=== PATIENT | male | born 1960 | race Two or more races ===

== ENCOUNTER 2017-06-30 07:33 | Emergency (ER) | payer OTHER ==
[2017-06-30 07:39] VITALS: BP 134/74; PULSE 78; TEMP 97.8; BMI 33.9
--- NOTE | 2017-06-30 07:49 | PDOC ---
History of Present Illness - General Chief Complaint: Back Pain Stated Complaint: BACK PAIN Time Seen by Provider: 06/30/17 07:41 History Source: Patient Exam Limitations: No Limitations - History of Present Illness Initial Comments: CHIEF COMPLAINT: 56 y/o afebrile male with PMH HTN, HLD, asthma, chronic pain c /o left lower back pain for 6 months. HISTORY OF PRESENT ILLNESS: The patient states he has had left lower back pain for many months and it sometimes radiates down left thigh. He states he normally takes percocet for the pain but ran out so today the pain was unbearable. He is scheduled to see his primary doctor for a Percocet refill in 2 days. He denies f/c, n/v/d, CP, SOB, abd pain, midline back pain, fall, trauma to back, saddle anesthesia, bowel/bladder incontinence. Vital signs on arrival are notable for O2 sat of 95% on RA. REVIEW OF SYSTEMS: GENERAL/CONSTITUTIONAL: No fever/chills. No weakness. No weight change. HEAD, EYES, EARS, NOSE AND THROAT: No change in vision. No ear pain or discharge. No sore throat. CARDIOVASCULAR: No chest pain or shortness of breath. RESPIRATORY: No cough, wheezing, or hemoptysis. GASTROINTESTINAL: No abd pain, nausea, vomiting, diarrhea. GENITOURINARY: No dysuria, frequency, or change in urination. No bowel or bladder incontinence. MUSCULOSKELETAL: No joint or muscle swelling or pain. No neck pain. +left low back pain. SKIN: No rash or easy bruising. NEUROLOGIC: No headache, vertigo, loss of consciousness, or loss of sensation. PHYSICAL EXAM: GENERAL: The patient is awake, alert, and fully oriented, in no acute distress. He is well appearing and ambulatory. HEAD: Normal with no signs of trauma. ENT: Pupils equal, round and reactive to light, extraocular movements intact, sclera anicteric, conjunctiva clear. Neck supple. LUNGS: Clear to auscultation bilaterally. Normal excursion. No respiratory distress or use of accessory muscles. CV: RRR, S1/S2, no MRG. Cap refill < 2 sec. ABDOMEN: Soft, non-distended, non-tender even to deep palpation, no hepatomegaly or splenomegaly, no masses. BACK: No midline lumbar spine TTP or step offs. Reproducible pain with palpation of left lumbar paravertebral muscles, L4-L5. Full flexion and extension of lumbar spine. No pain with palpation of left hip or left buttocks. EXTREMITIES: Normal range of motion, no edema. NEUROLOGICAL: Normal speech, normal gait. CN II-XII grossly intact. No saddle anesthesia. SKIN: Warm, dry, normal turgor, no rashes or lesions noted. Past History - Past Medical History Allergies/Adverse Reactions: Allergies Allergy/AdvReac Type Severity Reaction Status Date / Time No Known Allergies Allergy Verified 06/30/17 07:38 Home Medications: Ambulatory Orders Albuterol Sulfate Inhaler - [Ventolin HFA Inhaler -] 2 inh PO Q4H 08/30/14 Diclofenac Sodium [Voltaren] 300 gm TP 08/30/14 Gabapentin [Neurontin] 100 mg PO TID 08/30/14 Paroxetine HCl [Paxil -] 10 mg PO DAILY 08/30/14 Salmeterol/Fluticasone [Advair 500Mcg/50Mcg] 1 inh PO BID 08/30/14 Simvastatin [Zocor -] 40 mg PO HS 08/30/14 Valsartan/Hydrochlorothiazide [Diovan Hct 320-12.5 mg Tab] 1 combo PO DAILY Ambien 10 mg PO HS 02/01/15 Aspirin 81 mg PO DAILY 02/01/15 Colace 100 mg PO BID 02/01/15 Hydrochlorothiazide 25 mg PO DAILY 02/01/15 Percocet 1 tab PO PRN PRN 02/01/15 Toviaz 4 mg PO DAILY 02/01/15 Cyclobenzaprine HCl [Flexeril -] 10 mg PO TID #12 tablet 06/30/17 Asthma: Yes Diabetes: Yes (type II) HTN: Yes Hypercholesterolemia: Yes - Surgical History Orthopedic Surgery: Yes (both shoulders ? rotator cuff) - Family Disease History Family Disease History: Diabetes: Mother, Heart Disease: Father - Psycho/Social/Smoking Cessation Hx Anxiety: No Suicidal Ideation: No Smoking History: Never smoked Have you smoked in the past 12 months: No Number of Cigarettes Smoked Daily: 0 If you are a former smoker, when did you quit?: 20 years ago Hx Alcohol Use: Yes (SOCIAL) Drug/Substance Use Hx: No Substance Use Type: None Hx Substance Use Treatment: Yes ([facility]) *Physical Exam - Vital Signs Last Vital Signs Temp Pulse Resp BP Pulse Ox 97.8 F 78 20 134/74 95 06/30/17 07:35 06/30/17 07:35 06/30/17 07:35 06/30/17 07:35 06/30/17 07:35 Medical Decision Making - Medical Decision Making A/P: 56 y/o afebrile male with musculoskeletal low back pain. Plan is as follows: 1. UA 2. PO flexeril 3. IM toradol UA normal. The patient states he feels better. Will discharge the patient home with rx for flexeril. Informed him it may cause drowsiness. Suggested he also take Motrin with it and keep follow up appointment with his doctor on Wednesday for percocet refill. Pt instructed to return to the ER with any worsening or concerning symptoms. The patient verbalizes understanding of all instructions, has no further questions and is awaiting discharge. *DC/Admit/Observation/Transfer Diagnosis at time of Disposition: Low back pain - Discharge Dispostion Disposition: HOME Condition at time of disposition: Improved - Prescriptions Prescriptions: Cyclobenzaprine HCl [Flexeril -] 10 mg PO TID #12 tablet - Referrals Referrals: Arcelia Nieto MD [Primary Care Provider] - - Patient Instructions Printed Discharge Instructions: DI for Low Back Pain Additional Instructions: Discharge Instructions: -A prescription has been sent to your pharmacy; it may cause drowsiness -You can also take Motrin for pain along with the prescription medication -Use heating pad and stretch the affected area of your back -Keep follow up appointment scheduled with your doctor on 07/02/17. -Return to the ER with any worsening or concerning symptoms
[2017-06-30] MEDS ORDERED: CYCLOBENZAPRINE HCL 10 MG TABLET (FP) PO ONE (07:57)
[2017-06-30] MEDS ORDERED: KETOROLAC TROMETHAMINE 60 MG/2 ML VIAL IM ONE (07:57)
[2017-06-30] MEDS ORDERED: KETOROLAC TROMETHAMINE 60 MG/2 ML VIAL ONE (07:59)
[2017-06-30] MEDS ORDERED: CYCLOBENZAPRINE HCL 10 MG TABLET (FP) ONE (07:59)
[2017-06-30 08:41] LABS: URINE APPEARANCE CLEAR; URINE BILIRUBIN NEGATIVE (NEGATIVE); URINE BLOOD NEGATIVE (NEGATIVE); URINE COLOR YELLOW; URINE GLUCOSE (UA) 3+ (NEGATIVE); URINE KETONE NEGATIVE (NEGATIVE); URINE LEUK ESTERASE NEGATIVE (NEGATIVE); URINE NITRITE NEGATIVE (NEGATIVE); URINE PROTEIN NEGATIVE (NEGATIVE); URINE UROBILINOGEN NEGATIVE mg/dL (0.2-1.0)
--- NOTE | 2017-06-30 10:09 | PDOC ---
*Physical Exam - Vital Signs Last Vital Signs Temp Pulse Resp BP Pulse Ox 97.8 F 78 20 134/74 95 06/30/17 07:35 06/30/17 07:35 06/30/17 07:35 06/30/17 07:35 06/30/17 07:35 ED Treatment Course - ADDITIONAL ORDERS Additional order review: Laboratory Results 06/30/17 08:15 Urine Color Yellow Urine Appearance Clear Urine pH 6.0 Urine Protein Negative Urine Glucose (UA) 3+ H Urine Ketones Negative Urine Blood Negative Urine Nitrite Negative Urine Bilirubin Negative Urine Urobilinogen Negative Ur Leukocyte Esterase Negative - Medications Given in the ED: ED Medications Discontinued Medications Generic Name Dose Route Start Last Admin Trade Name Freq PRN Reason Stop Dose Admin Cyclobenzaprine HCl 10 mg 06/30/17 07:57 06/30/17 07:59 Flexeril - PO 06/30/17 07:58 10 mg ONCE ONE Administration Ketorolac Tromethamine 60 mg 06/30/17 07:57 06/30/17 07:59 Toradol Injection - IM 06/30/17 07:58 60 mg ONCE ONE Administration Medical Decision Making - Medical Decision Making 06/30/17 10:04 Pt seen and evaluated with MILLIE Henry. I agree with the assessment and plan. Summary as follows: 56yo M p/w 6 months of L lower back pain radiating down his leg. Denies lower extremity weakness, numbness, urine or stool retention or incontinence, or saddle anesthesia. Exam wnl with 5/5 strength in the lower extremities, normal sensory exam. Likely sciatica vs musculoskeletal back pain. Pt's pain improved immensely with toradol and flexeril. Pt has follow up appointment this week with his PMD for follow up. Will DC with return precautions. *DC/Admit/Observation/Transfer Diagnosis at time of Disposition: Low back pain - Discharge Dispostion Disposition: HOME Condition at time of disposition: Improved - Prescriptions Prescriptions: Cyclobenzaprine HCl [Flexeril -] 10 mg PO TID #12 tablet - Referrals Referrals: Arcelia Nieto MD [Primary Care Provider] - - Patient Instructions Printed Discharge Instructions: DI for Low Back Pain Additional Instructions: Discharge Instructions: -A prescription has been sent to your pharmacy; it may cause drowsiness -You can also take Motrin for pain along with the prescription medication -Use heating pad and stretch the affected area of your back -Keep follow up appointment scheduled with your doctor on 07/02/17. -Return to the ER with any worsening or concerning symptoms - Post Discharge Activity
== END 2017-06-30 10:00 | disposition home or self-care (01) ==
LOC: JER 07:33
PROC: 3E0233Z Introduction of Anti-inflammatory into Muscle, Percutaneous Approach (ICD-10-PCS; principal; 2017-06-30)
DX: M54.5 Low back pain (principal); I10 Essential (primary) hypertension; E78.5 Hyperlipidemia, unspecified; J45.909 Unspecified asthma, uncomplicated; G89.29 Other chronic pain
CPT/HCPCS: 81003; 99281-25

== ENCOUNTER 2017-08-25 12:04 | Emergency (ER) | payer OTHER ==
[2017-08-25 12:09] VITALS: BP 133/70; PULSE 90; TEMP 98.5; BMI 34.7
--- NOTE | 2017-08-25 12:50 | PDOC ---
History of Present Illness - General Chief Complaint: Eye Problem Stated Complaint: Left Eye pressure Time Seen by Provider: 08/25/17 12:13 History Source: Patient Exam Limitations: No Limitations - History of Present Illness Initial Comments: 08/25/17 12:44 CHIEF COMPLAINT: Woke up today with redness, drainage to left eye also with chronic back pain. HISTORY OF PRESENT ILLNESS: Patient is a 56-year-old male history of asthma, diabetes, hypertension and high cholesterol. Patient states he woke up this a.m. with pruritus, drainage to left eye with "pressure". Patient also requesting MRI for chronic back pain. Due to the care of chronic pain management awaiting approval for MRI. Patient denies any neurosensory deficits, no bowel or bladder difficulty, no saddle anesthesia, no footdrop. REVIEW OF SYSTEMS: GENERAL/CONSTITUTIONAL: No fever or chills. No weakness. No weight change. HEAD, EYES, EARS, NOSE AND THROAT: No change in vision. Drainage and pruritus to left eye, patient describes a pressure to left eye. No ear pain or discharge. No sore throat. RESPIRATORY: No cough, wheezing, or hemoptysis. SKIN : No rash or easy bruising. NEUROLOGIC: No headache, vertigo, loss of consciousness, or loss of sensation. HEMATOLOGIC/LYMPHATIC: No lymphadenopathy ALLERGIC/IMMUNOLOGIC: No hives or skin allergy. No latex allergy. PHYSICAL EXAM: GENERAL: The patient is awake, alert, and fully oriented, in no acute distress. HEAD: Normal with no signs of trauma. EYES: Pupils equal, round and reactive to light, extraocular movements intact, sclera anicteric, conjunctiva mildly injected, extending to limbus after fluorescein staining, no corneal abrasion noted. ENT: Ears normal, nares patent, oropharynx clear without exudates. Moist mucous membranes. NECK: Normal range of motion, supple without lymphadenopathy, JVD, or masses. LUNGS: Breath sounds equal, clear to auscultation bilaterally. No wheezes, and no crackles. MUSCULOSKELETAL: No direct spinal point tenderness. No pain over SI joint. NEUROLOGICAL: Cranial nerves II through XII grossly intact. Normal speech, normal gait. SKIN: No erythema no facial edema. Warm, Dry, normal turgor, no rashes or lesions noted. Past History - Past Medical History Allergies/Adverse Reactions: Allergies Allergy/AdvReac Type Severity Reaction Status Date / Time No Known Allergies Allergy Verified 08/25/17 12:09 Home Medications: Ambulatory Orders Albuterol Sulfate Inhaler - [Ventolin HFA Inhaler -] 2 inh PO Q4H 08/30/14 Gabapentin [Neurontin] 100 mg PO TID 08/30/14 Paroxetine HCl [Paxil -] 10 mg PO DAILY 08/30/14 Salmeterol/Fluticasone [Advair 500Mcg/50Mcg -] 1 inh PO BID 08/30/14 Simvastatin [Zocor -] 40 mg PO HS 08/30/14 Valsartan/Hydrochlorothiazide [Diovan Hct 320-12.5 mg Tab] 1 combo PO DAILY Ambien 10 mg PO HS 02/01/15 Aspirin 81 mg PO DAILY 02/01/15 Colace 100 mg PO BID 02/01/15 Hydrochlorothiazide 25 mg PO DAILY 02/01/15 Toviaz 4 mg PO DAILY 02/01/15 Polymyxin B Sulfate/Tmp [Polytrim Opthalmic Solution -] 1 drop OS Q3H #1 drops 08/25/17 Asthma: Yes Diabetes: Yes (type II) HTN: Yes Hypercholesterolemia: Yes - Surgical History Orthopedic Surgery: Yes (both shoulders ? rotator cuff) - Family Disease History Family Disease History: Diabetes: Mother, Heart Disease: Father - Suicide/Smoking/Psychosocial Hx Smoking History: Former smoker Have you smoked in the past 12 months: No Number of Cigarettes Smoked Daily: 0 If you are a former smoker, when did you quit?: 1996 Information on smoking cessation initiated: No Hx Alcohol Use: Yes (Occasinally) Drug/Substance Use Hx: No Substance Use Type: None Hx Substance Use Treatment: Yes ([facility]) *Physical Exam - Vital Signs Last Vital Signs Temp Pulse Resp BP Pulse Ox 98.5 F 90 14 133/70 97 08/25/17 12:06 08/25/17 12:06 08/25/17 12:06 08/25/17 12:06 08/25/17 12:06 Medical Decision Making - Medical Decision Making 08/25/17 12:54 A/P: Patient here for evaluation of left eye pressure, pruritus and drainage, also chronic lower back pain. Patient reports that he has an appointment with chronic pain management today he is awaiting his MRI however was requesting one in the emergency department because he did not one a week for the approval. Explained to patient that there is no acute injury at this time, there is no neurological or sensory deficit. I have obtained an appointment with ophthalmology for patient to be seen at 2 PM today. After fluorescein staining there is no corneal abrasion noted, patient states that he had clear drainage from eyes with "pressure" it is reasonable at this time for patient to be evaluated by ophthalmology to evaluate pressures in the eye. Patient will also follow-up with chronic pain management today to see if the MRI is approved. POlytrim opthalmic solution. I discussed the physical exam findings, ancillary test results and final diagnoses with the patient. I answered all of the patient's questions. The patient was satisfied with the care received and felt comfortable with the discharge plan and treatment plan. The patient will follow-up today and will return to the Emergency Department with any new, persistent or worsening symptoms. *DC/Admit/Observation/Transfer Diagnosis at time of Disposition: Eye pressure Chronic back pain Qualifiers: Back pain location: low back pain Back pain laterality: left Sciatica presence : without sciatica Qualified Code(s): M54.5 - Low back pain; M54.5 - Low back pain; G89.29 - Other chronic pain; G89.29 - Other chronic pain - Discharge Dispostion Disposition: HOME Condition at time of disposition: Good Admit: No - Prescriptions Prescriptions: Polymyxin B Sulfate/Tmp [Polytrim Opthalmic Solution -] 1 drop OS Q3H #1 drops - Referrals Referrals: Rafal Burton [Non Staff, Medical] - (TODAY AT 2 PM ) - Patient Instructions Additional Instructions: Please follow up today at 2 PM with the staffing coordinator Dr. Burton. Please follow-up with her chronic back pain doctor for MRI, take medications as prescribed
== END 2017-08-25 13:05 | disposition home or self-care (01) ==
LOC: JERFT 12:04
DX: H57.8 Other specified disorders of eye and adnexa (principal); M54.5 Low back pain; G89.29 Other chronic pain
CPT/HCPCS: 99281-25

== ENCOUNTER 2017-10-04 15:27 | Emergency (ER) | payer OTHER ==
--- NOTE | 2017-10-04 15:50 | PDOC ---
History of Present Illness <Clover Adames - Last Filed: 10/04/17 18:32> - History of Present Illness Initial Comments: 57 year old male with PMH of HTN, HLD, Diabetes, and repeat history of right shoulder dislocations (s/p surgery 10 years prior) presenting with right shoulder deformity after fall. He tripped after drinking 7 beers and walking around a wet floor with socks in his house then fell on his outstretched hand after which he heard a pop which was typical for his shoulder dislocations. He also admits to pain at that site. Denies any bleeding, skin breakage, head trauma, LOC, or any other symptoms. All of his previous reductions have been udner anesthesia without complication. 10/04/17 18:40 <Binu Rogel - Last Filed: 10/04/17 19:11> - General Chief Complaint: Injury Stated Complaint: INJURY TO ARM Time Seen by Provider: 10/04/17 15:49 Past History <Clover Adames - Last Filed: 10/04/17 18:32> - Past Medical History Asthma: Yes Diabetes: Yes (type II) HTN: Yes Hypercholesterolemia: Yes - Surgical History Orthopedic Surgery: Yes (both shoulders ? rotator cuff) - Family Disease History Family Disease History: Diabetes: Mother, Heart Disease: Father - Suicide/Smoking/Psychosocial Hx Smoking History: Former smoker Have you smoked in the past 12 months: No Number of Cigarettes Smoked Daily: 0 If you are a former smoker, when did you quit?: 1996 Hx Alcohol Use: Yes (Occasinally) Drug/Substance Use Hx: No Substance Use Type: None Hx Substance Use Treatment: Yes ([facility]) <Binu Rogel - Last Filed: 10/04/17 19:11> - Past Medical History Allergies/Adverse Reactions: Allergies Allergy/AdvReac Type Severity Reaction Status Date / Time No Known Allergies Allergy Verified 10/04/17 17:04 Home Medications: Ambulatory Orders Albuterol Sulfate Inhaler - [Ventolin HFA Inhaler -] 2 inh PO Q4H 08/30/14 Gabapentin [Neurontin] 100 mg PO TID 08/30/14 Paroxetine HCl [Paxil -] 10 mg PO DAILY 08/30/14 Salmeterol/Fluticasone [Advair 500Mcg/50Mcg -] 1 inh PO BID 08/30/14 Simvastatin [Zocor -] 40 mg PO HS 08/30/14 Valsartan/Hydrochlorothiazide [Diovan Hct 320-12.5 mg Tab] 1 combo PO DAILY Ambien 10 mg PO HS 02/01/15 Aspirin 81 mg PO DAILY 02/01/15 Colace 100 mg PO BID 02/01/15 Hydrochlorothiazide 25 mg PO DAILY 02/01/15 Toviaz 4 mg PO DAILY 02/01/15 Polymyxin B Sulfate/Tmp [Polytrim Opthalmic Solution -] 1 drop OS Q3H #1 drops 08/25/17 Review of Systems - Review of Systems Constitutional: No: Chills, Diaphoresis HEENTM: No: Blurred Vision Respiratory: No: Orthopnea, Shortness of Breath Cardiac (ROS): No: Chest Pain ABD/GI: No: Constipated, Diarrhea, Nausea, Vomiting : No: Dysuria, Discharge Integumentary: No: Bruising, Change in Color Neurological: No: Headache, Numbness, Paresthesia <Binu Rogel - Last Filed: 10/04/17 19:11> *Physical Exam - Vital Signs Last Vital Signs Temp Pulse Resp BP Pulse Ox 98.1 F 69 18 103/52 100 10/04/17 15:27 10/04/17 15:27 10/04/17 15:27 10/04/17 15:27 10/04/17 15:27 <Clover Adames - Last Filed: 10/04/17 18:32> - Physical Exam General Appearance: Yes: Nourished, Appropriately Dressed, Apparent Distress, Mild Distress HEENT: positive: EOMI, Normal ENT Inspection, Normal Voice Neck: positive: Trachea midline, Normal Thyroid, Supple. negative: Tender, Rigid Respiratory/Chest: positive: Lungs Clear, Normal Breath Sounds. negative: Chest Tender, Respiratory Distress Cardiovascular: positive: Regular Rhythm, Regular Rate Gastrointestinal/Abdominal: positive: Normal Bowel Sounds, Flat, Soft. negative : Tender Musculoskeletal: positive: Other (Right shoulder abducted to 90 degrees and externaly rotated. Unable to range without pain. Obvious deformity over the glenohumeral joint.). negative: Normal Inspection <Binu Rogel - Last Filed: 10/04/17 19:11> Procedures - Joint Reduction Right Joint Reduction Site: right: Shoulder, Anterior Dislocation Pre-Procedure NV Exam: normal Conscious Sedation: Yes Reduction Attempts: 1 Anesthetic: 2% Lidocaine (8 mL injected intrarticular) Anesthesia: Fentanyl Amt. of medication administered: 100mcg Procedure: Traction Counter Traction Post-Procedure NV Exam: normal Complications: No Post Joint Reduction Film: joint reduced Immobilized: Yes Progress: Propofol 20 mcg used with good reduction. Patient was slightly apneic for a few seconds but was bagged with ample jaw thrust. 10/04/17 18:58 Bedside consent, time out, and pre-procedure verification done. 10/04/17 18:59 <Binu Rogel - Last Filed: 10/04/17 19:11> ED Treatment Course - Medications Given in the ED: ED Medications Discontinued Medications Generic Name Dose Route Start Last Admin Trade Name Freq PRN Reason Stop Dose Admin Fentanyl 50 mcg 10/04/17 15:55 10/04/17 16:28 Sublimaze Injection - IVPUSH 10/04/17 15:56 50 mcg ONCE ONE Administration Fentanyl 50 mcg 10/04/17 16:52 10/04/17 17:04 Sublimaze Injection - IVPUSH 10/04/17 16:53 50 mcg ONCE ONE Administration Lidocaine/Epinephrine 20 ml 10/04/17 16:19 10/04/17 16:28 Xylocaine 2%-Epi 1:200,000 - NR 10/04/17 16:20 20 ml ONCE ONE Administration <Clover Adames - Last Filed: 10/04/17 18:32> Medical Decision Making - Medical Decision Making 57 year old male with right shoulder anterior dislocation on xray. Shoulder was reduced per procedure note after 100 total of fentanyl, intrarticular lidocaine, and 20 of propofol. Patient tolerated the procedure failry well and post reduction film should a well aligned glenohumeral joint. Shoulder was immobilized and ortho referral was given with instructions to keep his arm in the immobilizer until seeing orthopedics. 10/04/17 19:00 <Binu Rogel - Last Filed: 10/04/17 19:11> *DC/Admit/Observation/Transfer <Clover Adames - Last Filed: 10/04/17 18:32> - Discharge Dispostion Admit: No <Binu Rogel - Last Filed: 10/04/17 19:11> Diagnosis at time of Disposition: Shoulder dislocation, recurrent Qualifiers: Laterality: right Qualified Code(s): M24.411 - Recurrent dislocation, right shoulder - Discharge Dispostion Disposition: HOME - Referrals Referrals: Trell Davis MD [Staff Physician] - - Patient Instructions Printed Discharge Instructions: How to Use a Shoulder Immobilizer, DI for Shoulder Dislocation Additional Instructions: Your shoulder was put back in place. Please wear your shoulder immobilizer until you see the orthopedic doctor who we referred you to. Please return to the ED if your shoulder comes back out. Please use Tylenol and ibuprofen for pain.
[2017-10-04] MEDS ORDERED: LIDOCAINE HCL/EPINEPHRINE/PF 10 ML VIAL NR ONE (16:19)
[2017-10-04] MEDS ORDERED: LIDOCAINE 1%/EPI 1:100000 (20 ML MULTI DOSE VIAL) ONE (16:20)
[2017-10-04 17:05] VITALS: TEMP 98.1; BMI 34.7
[2017-10-04] MEDS ORDERED: PROPOFOL 1,000,000 MCG/100 ML VIAL IVPB SCH (18:00)
[2017-10-04] MEDS ORDERED: PROPOFOL 1,000,000 MCG/100 ML VIAL ONE (18:06)
--- NOTE | 2017-10-04 18:33 | PDOC ---
Attending Attestation - Resident Resident Name: Binu Rogel - ED Attending Attestation I have performed the following: I have examined & evaluated the patient, The case was reviewed & discussed with the resident, I agree w/resident's findings & plan, Exceptions are as noted - HPI HPI: 10/04/17 18:32 57-year-old male with a history of shoulder dislocations fell and dislocated his shoulder today. There is a 7 time. He's done this. He said 2 years ago. He did have orthopedic surgery on the same shoulder. Patient denies any other traumas. Denies any head trauma, loss of consciousness. - Physicial Exam PE: 10/04/17 18:47 57 yo male with rt shoulder anterior dislocation head nontraumatic neck supple lungs cta b/l cvs [id number] abd soft,nontender ext rt shouder ,good ulnar and radial pulses but anterior dislocation,sensation intact neuro axox3,ambulatory - Medical Decision Making 10/04/17 18:50 CONSENT obtained from pt PRE OP VITAL SIGNS done propofol given 20 mg IV fentanyl 100mg IV given shoulder successfully manually reduced post of radiograph ordered plan immobilizer/ortho followup
[2017-10-04] MEDS ORDERED: PROPOFOL 200 MG/20 ML VIAL IVPUSH ONE (18:39)
[2017-10-04 20:23] VITALS: BP 128/89; PULSE 84
== END 2017-10-04 19:36 | disposition home or self-care (01) ==
LOC: JER 15:27
PROC: 3E033NZ Introduction of Analgesics, Hypnotics, Sedatives into Peripheral Vein, Percutaneous Approach (ICD-10-PCS; principal; 2017-10-04)
PROC: 0RSJXZZ Reposition Right Shoulder Joint, External Approach (ICD-10-PCS; 2017-10-04)
DX: M24.411 Recurrent dislocation, right shoulder (principal); I10 Essential (primary) hypertension; E78.00 Pure hypercholesterolemia, unspecified; E11.9 Type 2 diabetes mellitus without complications; Z79.84 Long term (current) use of oral hypoglycemic drugs
CPT/HCPCS: 23650; 73030-TC-RT; 96374; 96376; 99283-25

== ENCOUNTER 2017-12-08 08:40 | Day surgery (SDC) | payer OTHER ==
[2017-12-07 11:23] VITALS: BMI 33.9
[2017-12-08] MEDS ORDERED: ROPIVACAINE HCL 0.5% 30ML VIAL ONE (09:35)
[2017-12-08] MEDS ORDERED: MIDAZOLAM HCL 2 MG/2 ML SINGLE DOSE VIAL ONE ×2 (09:36)
[2017-12-08] MEDS ORDERED: PATIENT'S OWN MEDICATION (NON-FORMULARY) (Salmeterol/Fluticasone [Advair 500mcg/50mcg -] 1 PO PRN (11:06)
--- NOTE | 2017-12-08 11:08 | HP ---
Satellite [facility] - Chief Complaint Chief Complaint: right shoulder pain - Past Medical History Allergies/Adverse Reactions: Allergies Allergy/AdvReac Type Severity Reaction Status Date / Time No Known Allergies Allergy Verified 12/08/17 09:30 - Current Medications Current Medications: Home Medications Medication Instructions Recorded Albuterol Sulfate Inhaler - 2 inh PO Q4H 08/30/14 [Ventolin HFA Inhaler -] Gabapentin [Neurontin] 100 mg PO TID 08/30/14 Paroxetine HCl [Paxil -] 10 mg PO DAILY 08/30/14 Salmeterol/Fluticasone [Advair 1 inh PO PRN PRN 08/30/14 500Mcg/50Mcg -] Simvastatin [Zocor -] 40 mg PO HS 08/30/14 Valsartan/Hydrochlorothiazide 1 combo PO DAILY 08/30/14 [Diovan Hct 320-12.5 mg Tab] Tamsulosin HCl [Flomax] 0.4 mg PO HS 12/07/17 Ascorbic Acid [Vitamin C] 500 mg PO DAILY 12/08/17 Cholecalciferol (Vitamin D3) 5,000 unit PO DAILY 12/08/17 [Vitamin D3] Cinnamon Bark [Cinnamon] 500 mg PO BID 12/08/17 Fluticasone Prop 0.05% Nasal 1 - 2 spray NS BID 12/08/17 [Flonase -] Vitamin E Mixed [Vitamin E] 400 unit PO DAILY 12/08/17 Satellite Physical Exam - Physical Examination Vital Signs: Vital Signs Period Temp Pulse Resp BP Sys/Motley Pulse Ox Last 24 Hr 97.9 F-97.9 F 77-77 20-20 123-123/60-60 96 General Appearance: Well Nourished, Well Developed, Alert & Oriented x3 ENT: Clear Lung: Normal air movement Heart: Regular rate & rhythm Extremities: Other (right shoulder- + ttp, decr rom, nvi MRI chronic RC arthropathy with GH djd) Neurological: Intact, Alert, Oriented Satellite Impression/Plan - Impression/Plan Impression: right shoulder djd, chronic RC arthropathy Operative Procedure: right reverse TSA Date to be Performed: 12/08/17
[2017-12-08] MEDS ORDERED: ONDANSETRON 4 MG/2 ML VIAL IVPUSH PRN (11:27)
[2017-12-08] MEDS ORDERED: LACTATED RINGERS SOLUTION 1,000 ML IV SCH (11:30)
[2017-12-08] MEDS ORDERED: PROPOFOL 20 ML ONE ×3 (11:58)
--- NOTE | 2017-12-08 15:46 | OP ---
Operative Note - Note: Operative Date: 12/08/17 ([facility]) Pre-Operative Diagnosis: right shoulder djd, chronic RC arthropathy Operation: right reverse TSA Post-Operative Diagnosis: Same as Pre-op Surgeon: Trell Davis Silicator: Ronald Paiz Anesthesiologist/FIELD OBSERVER: Aron Michelle Anesthesia: General, Local Specimens Removed: humeral head Estimated Blood Loss (mls): 700 Operative Report Dictated: Yes
[2017-12-08 16:46] LABS: HEMATOCRIT 38.5 % (35.4-49); HEMOGLOBIN 12.9 GM/dL (11.7-16.9); MCH 29.3 pg (25.7-33.7); MCHC 33.5 g/dl (32.0-35.9); MEAN CELL VOLUME 87.4 fl (80-96); MEAN PLT VOLUME 9.1 fl (7.5-11.1); PLATELET COUNT 241 K/MM3 (134-434); RDW 14.1 % (11.9-15.9); WHITE BLOOD COUNT 15.8 K/mm3 (4.0-10.0)
[2017-12-08] MEDS: ALBUTEROL SO4 18 GM HFA INHALER IH SCH ×2 (18:11→22:17)
[2017-12-08] MEDS: GABAPENTIN 100 MG CAPSULE (FP) PO SCH ×2 (18:12→22:19)
[2017-12-08] MEDS ORDERED: TAMSULOSIN HCL 0.4 MG CAP.ER.24H (FP) PO SCH (22:00)
[2017-12-08] MEDS ORDERED: ATORVASTATIN CA 20 MG TABLET (FP) PO SCH (22:00)
[2017-12-09] MEDS: ALBUTEROL SO4 18 GM HFA INHALER IH SCH ×5 (03:30→15:58)
[2017-12-09] MEDS: GABAPENTIN 100 MG CAPSULE (FP) PO SCH ×2 (05:48→14:40)
[2017-12-09] MEDS ORDERED: morphine CARPU-JECT 8 MG/1 ML DISP.SYRIN IVPB PRN (06:20)
--- NOTE | 2017-12-09 08:34 | PN ---
Progress Note (short form) - Note Progress Note: Pt seen and examined. He is on POD #1 s/p right total shoulder replacement. He c /o pain. AVSS Right arm looks good. Dressing removed, incision cleaned, dressing reapplied. No signs of infection or inflammation. RUE NVI. Good ROM at the right elbow, forearm, wrist, fingers. No swelling. He c/o "numbness" in the left foot, the rest of the LLE is nl, however he does has intact sensation to light touch and deep pressure. No pain in LLE. Imp Overall doing fine on POD #1. Rec IV Tylenol, and Anesthesia consultation for pain management. He will start ROM exercises for the RUE now. DC still likely today.
--- NOTE | 2017-12-09 08:46 | PN ---
Progress Note (short form) - Note Progress Note: Post op day#1.S/P Right reverse total shoulder replacement under GA uneventful.Patient had a R intersclene block for post op pain management which worked fine till 5am today.Patient stable and c/o pain score of 10/10 now so will order Urban Devine and Isaías IVPB.Patient scheduled to be DC today after feeling comfortable.No any anesthesia related problem.Patient DC from the anesthesia care.
[2017-12-09 09:00] LABS: HEMATOCRIT 31.6 % (35.4-49); HEMOGLOBIN 10.5 GM/dL (11.7-16.9); MCHC 33.2 g/dl (32.0-35.9); MEAN CELL VOLUME 87.4 fl (80-96); MEAN PLT VOLUME 9.2 fl (7.5-11.1); PLATELET COUNT 189 K/MM3 (134-434); RBC 3.62 M/mm3 (4.00-5.60); WHITE BLOOD COUNT 11.4 K/mm3 (4.0-10.0)
[2017-12-09] MEDS ORDERED: HYDROmorphone HCL CARPU-JECT 1 MG/1 ML DISP.SYRIN IVPB PRN (09:03)
[2017-12-09] MEDS ORDERED: ACETAMINOPHEN 1000 MG/100 ML VIAL (NON FORMULARY) IVPB PRN (09:04)
[2017-12-09] MEDS ORDERED: IBUPROFEN 800 MG/8 ML IJ IVPB PRN (09:15)
[2017-12-09] MEDS ORDERED: PT OWN MED DRAWER 7, Y5N ONE (09:43)
[2017-12-09] MEDS ORDERED: PARoxetine HCL 10 MG TABLET (FP) PO SCH (10:00)
--- NOTE | 2017-12-09 12:19 | SPEC ---
DATE OF OPERATION: 12/08/2017 PREOPERATIVE DIAGNOSES: Right shoulder arthritis, rotator cuff tear, and rotator cuff arthropathy. POSTOPERATIVE DIAGNOSES: Right shoulder arthritis, rotator cuff tear, and rotator cuff arthropathy. PROCEDURE: Right reverse total shoulder replacement. SURGEON: Katrina Valderrama MD MASON TENDER: MILLIE Guzman ANESTHESIOLOGIST: Aron Micehlle CRNA ANESTHESIA: Right interscalene block with LMA anesthesia. DRAINS: None. COMPLICATIONS: None. SPECIMEN: Humeral head. BLOOD LOSS: 700 mL FLUID GIVEN: 3 L Plasmalyte. INDICATION FOR PROCEDURE: This patient is a 57-year-old male with a preoperative diagnosis of a previous rotator cuff tear and rotator cuff repair surgery, but now with rotator cuff arthropathy and significant glenohumeral osteoarthritis. After understanding the potential risks, complications, alternatives, and benefits of surgery versus nonsurgical treatment, the patient elected to undergo this procedure. He understands that his range of motion and function will not be perfect. He will have difficulty lifting above the plane of the shoulder. He likely will need physical therapy. There is a lifelong risk of infection, prosthesis loosening, breakage, need for additional surgery. He understands these and other potential risks and complications which were discussed and has elected to go forward with surgery. DESCRIPTION OF PROCEDURE: A right interscalene block was performed. LMA anesthesia was induced. He was placed into the beach-chair position with ample padding throughout. The right upper extremity was prepped and draped in a sterile fashion. A deltopectoral approach incision was marked out using the coracoid and mid aspect of the proximal humerus as landmarks. The incision was made with the No. 15 scalpel blade. Subcutaneous hemostasis was achieved with a Bovie cautery. Dissection was done through the superficial fascia. Blunt dissection was done with my finger in the deltopectoral interval. The cephalic vein was retracted medially. The Gelpi self-retaining retractors were placed into the wound. I found the conjoined tendon off the coracoid and used the Bovie to incise lateral to it. I was then able to cut down to bone and preserve the medial and lateral capsular flaps. The rotator cuff subscapularis was very deficient. I then peeled the soft tissues, including the anterior aspect of the deltoid insertion off the humerus. The biceps tendon was seen to be frayed, degenerated out of its groove, and therefore I did a biceps tenolysis. Appropriate Fukuda and pickle-fork retractors were placed into the wound, exposing the proximal humerus. I was able to easily dislocate it anteriorly. It was extremely arthritic. Next, using the external guide and a broach, I used the oscillating saw to do a cut at the articular margin. Osteophytes were removed with the rongeur. Some soft tissue was removed with the Bovie. I was able to expose the proximal humerus quite well. Next, using the standard technique, using the Money Mover Reverse Total Shoulder Replacement System, we used first the starting awl and then the sequential hand broaches until we had cortical chatter. Then we used the humeral stem-shape broaches and mallet. We eventually seated a 15-size stem that had excellent cortical contact and was very stable throughout. We did not need to use the calcar reamer as the humeral cut was at the right angle. Next, our attention was turned to the glenoid. The Bovie was used to remove soft tissue, including some capsular attachments and the labrum. Retractors were placed into the wound to retract the humerus and expose the glenoid. With excellent direct visualization, we then put on the glenoid glenosphere, lining it up appropriately and put in the 3.2-mm guidewire. We went through 2 cortices. We then used the guidewire to do the glenoid reamer. We were able to ream the glenoid until we got bleeding subchondral bone. More bone was taken inferiorly than superiorly, but it was concentric. The guidewire was then removed, and we put on the actual 28-mm glenoid baseplate, held it in place with a 28-mm central screw. Then using the typical standard technique, we put in superior, inferior, and anterior and posterior screws, which were 36, 24, and 16 mm in length, respectively. We had excellent compression of the glenoid baseplate against the glenoid and overall concentric fit. Next, we put on a 36-mm glenosphere. This was the actual implant, impacted in place, and it was quite stable. Next, our attention was turned to the humerus. We cleaned up the humeral shaft, put in an actual Press-Fit humeral stem size number 12 and used the mallet to put it down to the appropriate level. We then trialed the size of the humeral glenosphere, and it ended up being a 36-mm implant. It was extremely stable. In fact, it was very difficult to dislocate. On the humeral side, there was a 4-mm baseplate, a 4-mm polyethylene, and a 2-mm offset. Next, this trial was removed, and the actual 36-mm humeral glenosphere was placed on, it was reduced, and was extremely stable throughout. The area was copiously irrigated and washed out. The capsule was closed anteriorly with several No. 1 Ti-Cron sutures, the deep fascial layer closed with No. 1 Ti-Cron, and the superficial deltoid fascia closed with 0 Vicryl suture. A 2-0 Vicryl was used to close the deep dermal layer, and final skin reapproximation was done with a running subcuticular 3-0 V-Loc suture. The area was then washed and dried, covered with a 10-inch Aquacel dressing. The patient was extubated. There was total blood loss of 700 mL. There were no complications during the case. The shoulder immobilizer was placed in the operating room, and she was brought to the regular recovery room in stable condition. Total operative time was 1 hour and 45 minutes. There were no complications during the case. The patient tolerated the procedure quite well. There was 700 mL of blood loss. KATRINA VALDERRAMA M.D. [id number]
[2017-12-09 14:42] VITALS: BP 133/60; PULSE 93; TEMP 98.3
--- NOTE | 2017-12-15 14:42 | PATH ---
Surgical Pathology Report Patient Name: BABS GASTELUM Med. Rec. #: [id number] /Age/Gender: 1960 (Age: 57) / M Account: [id number] Location: AMBULATORY SURG Taken: 12/08/2017 Received: 12/09/2017 Reported: 12/15/2017 Physicians: Trell Davis M.D. Specimen(s) Received RIGHT HUMERAL HEAD Clinical History Fracture/osteoarthritis right shoulder Final Diagnosis HUMERAL HEAD, RIGHT, REVERSE TOTAL SHOULDER REPLACEMENT: BONE WITH DEGENERATIVE CHANGES AND INTERSTITIAL HEMORRHAGE CONSISTENT WITH FRACTURE. Electronically Signed Sonia Garcia M.D. Gross Description Received in formalin labeled "right humeral head," is a 5.3 x 4.6 x 3.2 cm portion of humeral head. The margin of resection is red-brown, jagged and hemorrhagic. The articular surface is acosta-yellow and focally granular. There are no areas of eburnation identified. The underlying trabecular bone is yellow, hard and focally hemorrhagic. Mortgage Loan Coordinator sections are submitted in one cassette, following decalcification. /12/09/2017 [facility]2017
== END 2017-12-09 16:28 | disposition home or self-care (01) ==
LOC: JASU-SURG 08:40 → JASUSAT 08:40 → J6S 17:45 → JASUSAT 12-09 16:27
PROVIDERS: ATTEND Orthopaedic Surgery
PROC: 0RRJ00Z Replacement of Right Shoulder Joint with Reverse Ball and Socket Synthetic Substitute, Open Approach (ICD-10-PCS; principal; 2017-12-08 10:45)
DX: M13.811 Other specified arthritis, right shoulder (principal)
CPT/HCPCS: 36415; 73030-TC-RT-FY; 85027; 88307-TC; 88311-TC; 94760

== ENCOUNTER 2018-04-02 10:11 | Emergency (ER) | payer OTHER ==
[2018-04-02 10:17] VITALS: TEMP 98; BMI 34.7
[2018-04-02] MEDS ORDERED: LORATADINE 10 MG TABLET PO ONE (11:26)
[2018-04-02] MEDS: ALBUTEROL SO4 2.5/IPRATROPIUM 0.5 INH SOL 3 ML VIAL.NEB. NEB SCH ×2 (11:30→11:45)
[2018-04-02] MEDS ORDERED: ALBUTEROL SO4 2.5/IPRATROPIUM 0.5 INH SOL 3 ML VIAL.NEB. NEB ONE (11:31)
[2018-04-02] MEDS ORDERED: LORATADINE 10 MG TABLET ONE (11:31)
--- NOTE | 2018-04-02 12:08 | PDOC ---
History of Present Illness - General History Source: Patient Exam Limitations: No Limitations - History of Present Illness Initial Comments: CHIEF COMPLAINT: 57 y/o afebrile male with PMH asthma, BPH, HTN, HLD c/o inability to breathe for 4 months. HISTORY OF PRESENT ILLNESS: The patient describes that he cannot breathe through his nose for the past 4 months. He saw his PCP who suggested flonase but that has not been helping. He is taking his asthma medications as prescribed. he denies fever, cough, CP, SOB, abd pain, n/v/d. Vital signs on arrival are notable for pulse of 101. REVIEW OF SYSTEMS: GENERAL/CONSTITUTIONAL: No fever/chills. No weakness. No weight change. HEAD, EYES, EARS, NOSE AND THROAT: +nasal congestion. No change in vision. No ear pain or discharge. No sore throat. CARDIOVASCULAR: No chest pain or shortness of breath. RESPIRATORY: No cough, wheezing, or hemoptysis. GASTROINTESTINAL: No nausea, vomiting, diarrhea. GENITOURINARY: No dysuria, frequency, or change in urination. MUSCULOSKELETAL: No joint or muscle swelling or pain. No neck or back pain. SKIN: No rash or easy bruising. NEUROLOGIC: No headache, vertigo, loss of consciousness, or loss of sensation. PHYSICAL EXAM: GENERAL: The patient is awake, alert, and fully oriented, in no acute distress. he is well appearing, ambulatory, able to speak in full sentences without difficulty. HEAD: Normal with no signs of trauma. ENT: Pupils equal, round and reactive to light, extraocular movements intact, sclera anicteric, conjunctiva clear. Nasal congestion LUNGS: Expiratory wheezing in upper posterior delgado. Normal excursion. No respiratory distress or use of accessory muscles. CV: RRR, S1/S2, no MRG. Cap refill < 2 sec. ABDOMEN: Soft, non-distended, non-tender even to deep palpation, no hepatomegaly or splenomegaly, no masses. EXTREMITIES: Normal range of motion, no edema. NEUROLOGICAL: Normal speech, normal gait. CN II-XII grossly intact. SKIN: Warm, dry, normal turgor, no rashes or lesions noted. <Elvi Henry - Last Filed: 04/02/18 12:37> <Jack Ceballos - Last Filed: 04/04/18 07:34> - General Chief Complaint: Shortness of Breath Stated Complaint: BREATHING PROBLEMS Time Seen by Provider: 04/02/18 11:06 Past History - Past Medical History Anemia: No Asthma: Yes Cancer: No Cardiac Disorders: No CVA: No COPD: No CHF: No Dementia: No Diabetes: Yes (type II) GI Disorders: No Disorders: No HTN: Yes Hypercholesterolemia: Yes Liver Disease: No Seizures: No Thyroid Disease: No - Surgical History Abdominal Surgery: No Appendectomy: No Cardiac Surgery: No Cholecystectomy: No Lung Surgery: No Neurologic Surgery: No Orthopedic Surgery: Yes (both shoulders ? rotator cuff) - Family Disease History Family Disease History: Diabetes: Mother, Heart Disease: Father - Suicide/Smoking/Psychosocial Hx Smoking History: Former smoker Have you smoked in the past 12 months: No Number of Cigarettes Smoked Daily: 0 If you are a former smoker, when did you quit?: 1996 Information on smoking cessation initiated: No Hx Alcohol Use: Yes (SOCIALLY) Drug/Substance Use Hx: No Substance Use Type: None Hx Substance Use Treatment: Yes ([facility]) <Elvi Henry - Last Filed: 04/02/18 12:37> <Jack Ceballos - Last Filed: 04/04/18 07:34> - Past Medical History Allergies/Adverse Reactions: Allergies Allergy/AdvReac Type Severity Reaction Status Date / Time No Known Allergies Allergy Verified 04/02/18 10:17 Home Medications: Ambulatory Orders Albuterol Sulfate Inhaler - [Ventolin HFA Inhaler -] 2 inh PO Q4H 08/30/14 Gabapentin [Neurontin] 100 mg PO TID 08/30/14 Paroxetine HCl [Paxil -] 10 mg PO DAILY 08/30/14 Salmeterol/Fluticasone [Advair 500Mcg/50Mcg -] 1 inh PO PRN PRN 08/30/14 Simvastatin [Zocor -] 40 mg PO HS 08/30/14 Valsartan/Hydrochlorothiazide [Diovan Hct 320-12.5 mg Tab] 1 combo PO DAILY Tamsulosin HCl [Flomax] 0.4 mg PO HS 12/07/17 Ascorbic Acid [Vitamin C] 500 mg PO DAILY 12/08/17 Cholecalciferol (Vitamin D3) [Vitamin D3] 5,000 unit PO DAILY 12/08/17 Cinnamon Bark [Cinnamon] 500 mg PO BID 12/08/17 Fluticasone Prop 0.05% Nasal [Flonase -] 1 - 2 spray NS BID 12/08/17 Vitamin E Mixed [Vitamin E] 400 unit PO DAILY 12/08/17 Albuterol 0.083% Nebulizer Deb [Ventolin 0.083% Nebulizer Soln -] 1 neb NEB Q6H PRN #50 vial 04/02/18 Loratadine [Claritin -] 10 mg PO DAILY #30 tablet 04/02/18 Nebulizer [Aeroeclipse II] 1 each PRN #1 each 04/02/18 *Physical Exam - Vital Signs Last Vital Signs Temp Pulse Resp BP Pulse Ox 98 F 101 H 18 140/75 99 04/02/18 10:13 04/02/18 10:13 04/02/18 10:13 04/02/18 10:13 04/02/18 10:13 <Elvi Henry - Last Filed: 04/02/18 12:37> - Vital Signs Last Vital Signs Temp Pulse Resp BP Pulse Ox 98 F 80 16 139/85 100 04/02/18 10:13 04/02/18 12:45 04/02/18 12:45 04/02/18 12:45 04/02/18 12:45 <Jack Ceballos - Last Filed: 04/04/18 07:34> Moderate Sedation - Procedure Monitoring Vital Signs: Vital Signs Temp Pulse Resp BP Pulse Ox 98 F 80 16 139/85 100 04/02/18 10:13 04/02/18 12:45 04/02/18 12:45 04/02/18 12:45 04/02/18 12:45 <Jack Ceballos - Last Filed: 04/04/18 07:34> ED Treatment Course - Medications Given in the ED: ED Medications Discontinued Medications Generic Name Dose Route Start Last Admin Trade Name Freq PRN Reason Stop Dose Admin Albuterol/Ipratropium 1 amp 04/02/18 11:30 04/02/18 11:45 Duoneb - NEB 04/02/18 11:46 1 amp Q15M LAINEY Administration Loratadine 10 mg 04/02/18 11:26 04/02/18 11:37 Claritin - PO 04/02/18 11:27 10 mg ONCE ONE Administration <LinJack rodriguez - Last Filed: 04/04/18 07:34> Medical Decision Making - Medical Decision Making A/P: 57 y/o afebrile male with nasal congestion and wheezing. Plan is as follows: 1. PO claritin 2. Duoneb x 2 3. Reassess The patient states he feels much better. Lungs are now CTAB. Will discharge to home with rx for nebulizer with albuterol and claritin. Instructed him to f/ u with his PMD within 1 week and return to the ER with any worsening or concerning symptoms. The patient verbalizes understanding of all instructions, has no further questions and is awaiting discharge. <Elvi Henry - Last Filed: 04/02/18 12:37> - Medical Decision Making The patient was seen and evaluated in conjunction with MILLIE Henry under my direct supervision, ancillary studies were reviewed. I agree with the plan as outlined by MILLIE Henry . <Jack Ceballos - Last Filed: 04/04/18 07:34> *DC/Admit/Observation/Transfer <Elvi Henry - Last Filed: 04/02/18 12:37> <Jack Ceballos - Last Filed: 04/04/18 07:34> Diagnosis at time of Disposition: Wheezing, Nasal congestion - Discharge Dispostion Disposition: HOME Condition at time of disposition: Improved - Prescriptions Prescriptions: Albuterol 0.083% Nebulizer Deb [Ventolin 0.083% Nebulizer Soln -] 1 neb NEB Q6H PRN #50 vial PRN Reason: Shortness Of Breath Loratadine [Claritin -] 10 mg PO DAILY #30 tablet Nebulizer [Aeroeclipse II] 1 each MC PRN #1 each - Referrals Referrals: Alexandra Coelho MD [Primary Care Provider] - 1 week - Patient Instructions Printed Discharge Instructions: DI for Asthma -- Adult, DI for Nasal Congestion Additional Instructions: Discharge Instructions: -2 prescriptions have been sent to your pharmacy; please use as prescribed -Continue taking all of your other medications as prescribed -Follow up with your doctor within 1 week -return to the ER with any worsening or concerning symptoms Instrucciones de descarga: -2 recetas kent sido enviadas a del [place] farmacia; por favor use segn lo prescrito -Contine tomando todos darius otros medicamentos segn lo prescrito -Siga con del [place] doctor dentro de 1 semana -Regresar a la fracisco de urgencias con cualquier empeoramiento o sntomas Print Language: NIGERIAN - Post Discharge Activity
[2018-04-02 12:46] VITALS: BP 139/85; PULSE 80
--- NOTE | 2018-04-05 00:32 | EKG ---
Test Reason : Blood Pressure : / mmHG Vent. Rate : 078 BPM Atrial Rate : 078 BPM P-R Int : 152 ms QRS Dur : 086 ms QT Int : 378 ms P-R-T Axes : 052 067 046 degrees QTc Int : 430 ms NORMAL SINUS RHYTHM POSSIBLE LEFT ATRIAL ENLARGEMENT BORDERLINE ECG WHEN COMPARED WITH ECG OF 14-MAY-2014 12:12, NO SIGNIFICANT CHANGE WAS FOUND Confirmed by ROSENDO LIRA MD ([id number]) on 04/05/2018 12:32:05 AM Referred By: Confirmed By:ROSENDO LIRA MD
== END 2018-04-02 12:49 | disposition home or self-care (01) ==
LOC: JER 10:11
PROC: 3E0F7GC Introduction of Other Therapeutic Substance into Respiratory Tract, Via Natural or Artificial Opening (ICD-10-PCS; principal; 2018-04-02)
PROC: 3E0F7GC Introduction of Other Therapeutic Substance into Respiratory Tract, Via Natural or Artificial Opening (ICD-10-PCS; 2018-04-02)
DX: J45.909 Unspecified asthma, uncomplicated (principal); I10 Essential (primary) hypertension; E78.00 Pure hypercholesterolemia, unspecified; E11.9 Type 2 diabetes mellitus without complications
CPT/HCPCS: 93005; 93010; 94640; 99283-25; J7620

== ENCOUNTER 2019-08-07 08:40 | Emergency (ER) | payer OTHER ==
[2019-08-07 08:47] VITALS: BP 133/71; PULSE 75; TEMP 98.6; BMI 33.9
--- NOTE | 2019-08-07 09:28 | PDOC ---
History of Present Illness - General Chief Complaint: Cold Symptoms Stated Complaint: CHRONIC COUGHING Time Seen by Provider: 08/07/19 09:16 History Source: Patient Exam Limitations: No Limitations - History of Present Illness Initial Comments: 08/07/19 09:22 58 year old male with medical history of DM, HTN, asthma and surgical history of right shoulder, left shoulder and left knee repair presents with complaints of non productive coughing x 3 weeks with little mucus. Symptoms associated by itching of the throat and right ear. Denies fever, chills or bodyaches. States took theraflu with no relief of symptoms. Is this a multiple visit Asthma Patient?: No Timing/Duration: reports: week (3weeks) Severity: reports: mild Possible Cause: Yes: no prior episodes Modifying Factors: improves with: albuterol inhaler, coughing Associated Symptoms: reports: nasal congestion Past History - Travel Traveled outside of the country in the last 30 days: No Close contact w/someone who was outside of country & ill: No - Past Medical History Allergies/Adverse Reactions: Allergies Allergy/AdvReac Type Severity Reaction Status Date / Time No Known Allergies Allergy Verified 08/07/19 08:47 Home Medications: Ambulatory Orders Albuterol Sulfate Inhaler - [Ventolin HFA Inhaler -] 2 inh PO Q4H 08/30/14 Gabapentin [Neurontin] 100 mg PO TID 08/30/14 Paroxetine HCl [Paxil -] 10 mg PO DAILY 08/30/14 Salmeterol/Fluticasone [Advair 500Mcg/50Mcg -] 1 inh PO PRN PRN 08/30/14 Simvastatin [Zocor -] 40 mg PO HS 08/30/14 Valsartan/Hydrochlorothiazide [Diovan Hct 320-12.5 mg Tab] 1 combo PO DAILY Tamsulosin HCl [Flomax] 0.4 mg PO HS 12/07/17 Ascorbic Acid [Vitamin C] 500 mg PO DAILY 12/08/17 Cholecalciferol (Vitamin D3) [Vitamin D3] 5,000 unit PO DAILY 12/08/17 Cinnamon Bark [Cinnamon] 500 mg PO BID 12/08/17 Fluticasone Prop 0.05% Nasal [Flonase -] 1 - 2 spray NS BID 12/08/17 Vitamin E Mixed [Vitamin E] 400 unit PO DAILY 12/08/17 Albuterol 0.083% Nebulizer Deb [Ventolin 0.083% Nebulizer Soln -] 1 neb NEB Q6H PRN #50 vial 04/02/18 Loratadine [Claritin -] 10 mg PO DAILY #30 tablet 04/02/18 Nebulizer [Aeroeclipse II] 1 each MC PRN #1 each 04/02/18 Azithromycin [Zithromax 250mg Tablets -] 250 mg PO UTDICT #6 tab 08/07/19 Loratadine [Claritin] 10 mg PO DAILY #10 tablet 08/07/19 Anemia: No Asthma: Yes Cancer: No Cardiac Disorders: No CVA: No COPD: No CHF: No Dementia: No Diabetes: Yes (type II) GI Disorders: No Disorders: No HTN: Yes Hypercholesterolemia: Yes Liver Disease: No Seizures: No Thyroid Disease: No - Surgical History Abdominal Surgery: No Appendectomy: No Cardiac Surgery: No Cholecystectomy: No Lung Surgery: No Neurologic Surgery: No Orthopedic Surgery: Yes (both shoulders ? rotator cuff) - Family Disease History Family Disease History: Diabetes: Mother, Heart Disease: Father - Suicide/Smoking/Psychosocial Hx Smoking History: Never smoked Have you smoked in the past 12 months: No Number of Cigarettes Smoked Daily: 0 If you are a former smoker, when did you quit?: 1996 Information on smoking cessation initiated: No Hx Alcohol Use: No Drug/Substance Use Hx: No Substance Use Type: None Hx Substance Use Treatment: Yes ([facility]) Respiratory Specific PMHX - Complaint Specific PMHX Angina: No Bronchitis: No Pneumonia: No Pulmonary Embolus: No TB (Tuberculosis): No Review of Systems - Review of Systems Able to Perform ROS?: Yes Is the patient limited Japanese proficient: No Constitutional: No: Chills, Fever, Loss of Appetite, Malaise HEENTM: No: Nose Pain, Throat Pain, Throat Swelling Respiratory: Yes: Cough. No: Orthopnea, Wheezing Cardiac (ROS): No: Chest Pain, Lightheadedness, Palpitations ABD/GI: No: Poor Appetite, Vomiting, Indigestion : No: Dysuria, Hematuria, Pain Musculoskeletal: No: Joint Pain, Muscle Weakness Integumentary: No: Bruising, Erythema Neurological: No: See HPI, Headache, Numbness, Paresthesia, Tingling, Tremors Endocrine: No: Increased Urine Hematologic/Lymphatic: No: Blood Clots *Physical Exam - Vital Signs Last Vital Signs Temp Pulse Resp BP Pulse Ox 98.6 F 75 19 133/71 98 08/07/19 08:45 08/07/19 08:45 08/07/19 08:45 08/07/19 08:45 08/07/19 08:45 - Physical Exam General Appearance: Yes: Nourished, Appropriately Dressed HEENT: positive: YENNY, TMs Normal, Pharyngeal Erythema, Nasal Congestion Neck: positive: Supple. negative: Lymphadenopathy (R), Lymphadenopathy (L) Respiratory/Chest: positive: Lungs Clear Cardiovascular: positive: Regular Rhythm, Regular Rate Extremity: positive: Normal Capillary Refill Neurologic: positive: Fully Oriented, Alert Medical Decision Making - Medical Decision Making 08/07/19 09:27 58 year old male with medical history of DM, HTN, asthma and surgical history of right shoulder, left shoulder and left knee repair presents with complaints of non productive coughing x 3 weeks with little mucus. Symptoms associated by itching of the throat and right ear. Cough Rx: richie de la fuente encouraged use of albuterol pump *DC/Admit/Observation/Transfer Diagnosis at time of Disposition: Cough, Acute allergic rhinitis - Discharge Dispostion Disposition: HOME Condition at time of disposition: Good Decision to Admit order: No - Prescriptions Prescriptions: Azithromycin [Zithromax 250mg Tablets -] 250 mg PO UTDICT #6 tab Loratadine [Claritin] 10 mg PO DAILY #10 tablet - Referrals - Patient Instructions Printed Discharge Instructions: How to Avoid a Cold or Flu Additional Instructions: Please take medication as prescribed until completely finished Use albuterol pump every 4 hours for 3 days then as needed. Return to emergency room for worsening symptoms Call primary physician for follow up appointment - Post Discharge Activity Forms/Work/School Notes: Back to Work
== END 2019-08-07 09:58 | disposition home or self-care (01) ==
LOC: JERFT 08:40
DX: J30.9 Allergic rhinitis, unspecified (principal); R05 Cough; I10 Essential (primary) hypertension; E11.9 Type 2 diabetes mellitus without complications; Z79.84 Long term (current) use of oral hypoglycemic drugs; E78.00 Pure hypercholesterolemia, unspecified; J45.909 Unspecified asthma, uncomplicated
CPT/HCPCS: 99281-25

== ENCOUNTER 2019-08-31 12:00 | Emergency (ER) | payer OTHER ==
--- NOTE | 2019-08-31 12:12 | PDOC ---
Rapid Medical Evaluation Time Seen by Provider: 08/31/19 12:12 Medical Evaluation: Allergies Allergy/AdvReac Type Severity Reaction Status Date / Time No Known Allergies Allergy Verified 08/07/19 08:47 08/31/19 12:12 I have performed a brief in-person evaluation of this patient. The patient presents with a chief complaint of: back pain x years Pertinent physical exam findings: ambulatory I have ordered the following: nothing The patient will proceed to the ED for further evaluation.
[2019-08-31 12:15] VITALS: BP 126/73; PULSE 78; TEMP 98.6; BMI 33.9
[2019-08-31] MEDS ORDERED: KETOROLAC TROMETHAMINE 60 MG/2 ML VIAL IM ONE (12:55)
[2019-08-31] MEDS ORDERED: CYCLOBENZAPRINE HCL 10 MG TABLET (FP) ONE (12:56)
[2019-08-31] MEDS ORDERED: KETOROLAC TROMETHAMINE 60 MG/2 ML VIAL ONE (12:56)
[2019-08-31] MEDS ORDERED: CYCLOBENZAPRINE HCL 10 MG TABLET (FP) PO ONE (12:59)
--- NOTE | 2019-08-31 12:59 | PDOC ---
History of Present Illness - General Chief Complaint: Back Pain Stated Complaint: BACK PAIN Time Seen by Provider: 08/31/19 12:12 History Source: Patient Exam Limitations: No Limitations - History of Present Illness Initial Comments: 08/31/19 12:56 CHIEF COMPLAINT: Lower back pain HISTORY OF PRESENT ILLNESS: This is a 59-year-old male with past medical history of hypertension, asthma, chronic back pain and [id number] diabetes who presents emergency department for evaluation of acute on chronic lower back pain. Patient reports this is an acute exacerbation of his usual chronic lower back pain. Patient does not remember what medications he takes to help with his back pain but on chart review was noted to have improvement with Toradol and Flexeril. Patient has an appointment with a new primary doctor on September 28 of this year. Patient denies any numbness or tingling to his lower extremities, saddle anesthesia, incontinence of bladder or bowel, urinary retention, history of IV drug use or history of cancer. REVIEW OF SYSTEMS: GENERAL: Afebrile, denies any weakness RESPIRATORY: No cough, wheezing, or hemoptysis. CARDIAC: No chest pain or shortness of breath MUSCULOSKELETAL: Pain to generalized lower back. No point tenderness. SKIN : No erythema, no bruising, no deformity. GI/: Denies any abdominal pain, no urinary difficulty, incontinence or urinary retention. RECTAL: Denies any difficulty this A.m. NEUROLOGICAL: Denies any numbness or tingling. No neurosensory deficits. PHYSICAL EXAM: GENERAL: The patient is awake, alert, and fully oriented, in no acute distress. RESPIRATORY: Lungs clear bilaterally, no rhonchi wheezes or crackles CARDIAC: S1-S2 audible, no murmur rub or gallop MUSCULOSKELETAL: Pain to generalized lower back, nonradiating, no tingling or sensory deficit. Less than 2 second cap refill, +2 pedal pulses. No spinal point tenderness. Normal reflexive and no deficits to sensation or strength. GI/: Abdomen soft, nontender, nondistended. No rebound tenderness. No masses palpable. RECTAL: Deferred patient with no neurological findings. SKIN: Warm, Dry, normal turgor, no erythema, no edema no bruising. Past History - Past Medical History Allergies/Adverse Reactions: Allergies Allergy/AdvReac Type Severity Reaction Status Date / Time No Known Allergies Allergy Verified 08/07/19 08:47 Home Medications: Ambulatory Orders Paroxetine HCl [Paxil -] 10 mg PO DAILY 08/30/14 Salmeterol/Fluticasone [Advair 500Mcg/50Mcg -] 1 inh PO PRN PRN 08/30/14 Simvastatin [Zocor -] 40 mg PO HS 08/30/14 Valsartan/Hydrochlorothiazide [Diovan Hct 320-12.5 mg Tab] 1 combo PO DAILY Tamsulosin HCl [Flomax] 0.4 mg PO HS 12/07/17 Nebulizer [Aeroeclipse II] 1 each MC PRN #1 each 04/02/18 Loratadine [Claritin] 10 mg PO DAILY #10 tablet 08/07/19 Cyclobenzaprine HCl [Flexeril 10 mg] 10 mg PO BID PRN #20 tablet 08/31/19 Anemia: No Asthma: Yes Cancer: No Cardiac Disorders: No CVA: No COPD: No CHF: No Dementia: No Diabetes: Yes (type II) GI Disorders: No Disorders: No HTN: Yes Hypercholesterolemia: Yes Liver Disease: No Seizures: No Thyroid Disease: No - Surgical History Abdominal Surgery: No Appendectomy: No Cardiac Surgery: No Cholecystectomy: No Lung Surgery: No Neurologic Surgery: No Orthopedic Surgery: Yes (both shoulders ? rotator cuff) - Immunization History Immunization Up to Date: No - Psycho Social/Smoking Cessation Hx Smoking History: Never smoked Have you smoked in the past 12 months: No Number of Cigarettes Smoked Daily: 0 If you are a former smoker, when did you quit?: 1996 Information on smoking cessation initiated: No Hx Alcohol Use: No Drug/Substance Use Hx: No Substance Use Type: None Hx Substance Use Treatment: Yes ([facility]) *Physical Exam - Vital Signs Last Vital Signs Temp Pulse Resp BP Pulse Ox 98.6 F 78 16 126/73 98 08/31/19 12:12 08/31/19 12:12 08/31/19 12:12 08/31/19 12:12 08/31/19 12:12 Medical Decision Making - Medical Decision Making 08/31/19 12:58 A/P: 59-year-old male with acute on chronic lower back pain Toradol 60 mg IM now Flexeril 10 mg orally now Reassess 08/31/19 13:35 Patient reports of burning pain after receiving medications. I will discharge home with prescription for Flexeril and encourage patient to take Motrin I discussed the physical exam findings, ancillary test results and final diagnoses with the patient. I answered all of the patient's questions. The patient was satisfied with the care received and felt comfortable with the discharge plan and treatment plan. The patient will call their primary care physician within 24 hours to arrange follow-up and will return to the Emergency Department with any new, persistent or worsening symptoms. Discharge - Discharge Information Problems reviewed: Yes Clinical Impression/Diagnosis: Low back pain Condition: Stable Disposition: HOME - Admission No - Additional Discharge Information Prescriptions: Cyclobenzaprine HCl [Flexeril 10 mg] 10 mg PO BID PRN #20 tablet PRN Reason: Back Pain - Follow up/Referral Referrals: Tex Pat [Primary Care Provider] - - Patient Discharge Instructions Additional Instructions: Take Tylenol or Motrin as needed for pain. Follow manufacturers instructions for appropriate dosage. Flexeril 10 mg twice a day as needed for back pain. Try not to walk or bear weight as much as possible for the next 3 days. Warm moist heat applied to your back may help alleviate pain. Return to emergency department for discoloration of the foot, numbness or tingling to the foot, worsening pain, or any other concerns. Thank you very much for choosing us to provide your emergent healthcare needs. - Post Discharge Activity
[2019-09-01] MEDS ORDERED: CYCLOBENZAPRINE HCL 5 MG TABLET PO ONE (12:55)
== END 2019-08-31 13:40 | disposition home or self-care (01) ==
LOC: JERFT 12:00
PROC: 3E0233Z Introduction of Anti-inflammatory into Muscle, Percutaneous Approach (ICD-10-PCS; principal; 2019-08-31)
DX: M54.5 Low back pain (principal); G89.29 Other chronic pain; I10 Essential (primary) hypertension; E11.9 Type 2 diabetes mellitus without complications; Z79.84 Long term (current) use of oral hypoglycemic drugs; J45.909 Unspecified asthma, uncomplicated
CPT/HCPCS: 99282-25

== ENCOUNTER 2020-09-24 16:13 | Emergency (ER) | payer OTHER ==
[2020-09-24] MEDS ORDERED: ACETAMINOPHEN 1000 MG/100 ML VIAL (NON FORMULARY) IVPB ONE (16:27)
[2020-09-24] MEDS ORDERED: METOCLOPRAMIDE HCL INJECTION 10 MG/2 ML VIAL IVPUSH ONE (16:27)
[2020-09-24 16:34] VITALS: BP 114/64; PULSE 74; TEMP 98.8; BMI 32.3
[2020-09-24] MEDS ORDERED: ACETAMINOPHEN INJECTION 100 ML IVPB ONE (17:07)
[2020-09-24] MEDS ORDERED: METOCLOPRAMIDE HCL INJECTION 10 MG/2 ML VIAL ONE (17:07)
[2020-09-24] MEDS ORDERED: SODIUM CHLORIDE 1,000 ML IV STA (17:21)
== END 2020-09-24 20:55 | disposition home or self-care (01) ==
LOC: JER 16:13
PROC: 3E0333Z Introduction of Anti-inflammatory into Peripheral Vein, Percutaneous Approach (ICD-10-PCS; principal; 2020-09-24)
PROC: 3E033GC Introduction of Other Therapeutic Substance into Peripheral Vein, Percutaneous Approach (ICD-10-PCS; 2020-09-24)
PROC: 3E033GC Introduction of Other Therapeutic Substance into Peripheral Vein, Percutaneous Approach (ICD-10-PCS; 2020-09-24)
PROC: 3E0337Z Introduction of Electrolytic and Water Balance Substance into Peripheral Vein, Percutaneous Approach (ICD-10-PCS; 2020-09-24)
DX: G44.209 Tension-type headache, unspecified, not intractable (principal)
CPT/HCPCS: 72050-TC-FY; 93005; 93010; 99284-25; J0131

== ENCOUNTER 2021-07-02 08:23 | Emergency (ER) | payer OTHER ==
[2021-07-02 08:48] VITALS: BP 143/84; PULSE 92; TEMP 97; BMI 32.3
[2021-07-02] MEDS ORDERED: KETOROLAC TROMETHAMINE 30 MG/1 ML VIAL IM ONE (09:00)
[2021-07-02] MEDS ORDERED: KETOROLAC TROMETHAMINE 30 MG/1 ML VIAL ONE (09:34)
== END 2021-07-02 10:21 | disposition home or self-care (01) ==
LOC: JER 08:23
PROC: 3E0233Z Introduction of Anti-inflammatory into Muscle, Percutaneous Approach (ICD-10-PCS; principal; 2021-07-02)
DX: M54.42 Lumbago with sciatica, left side (principal); G89.29 Other chronic pain
CPT/HCPCS: 96372; 99284-25

== ENCOUNTER 2022-02-13 04:24 | Day surgery (SDC) | payer OTHER ==
[2022-02-12 10:06] VITALS: BMI 34.7
[2022-02-13] MEDS ORDERED: LIDOCAINE HCL/PF 1% SDV 5ML VIAL ONE (07:36)
[2022-02-13] MEDS ORDERED: BUPIVACAINE HCL/PF 0.75% 10 ML VIAL ONE (07:36)
[2022-02-13] MEDS ORDERED: IOHEXOL 180 MG/1 ML ML IJ ONE ×2 (13:38→13:39)
[2022-02-13] MEDS ORDERED: LIDOCAINE 1% P/F 10 MG/ML VIAL INF ONE (13:40)
[2022-02-13] MEDS ORDERED: BUPIVACAINE HCL/PF 0.75% 10 ML VIAL NR ONE (13:41)
[2022-02-13 14:42] VITALS: BP 118/64; PULSE 67; TEMP 97.8
== END 2022-02-13 14:25 | disposition home or self-care (01) ==
LOC: JASU-SURG 04:24
PROVIDERS: ATTEND Pain Medicine Pain Medicine
PROC: 3E0T33Z Introduction of Anti-inflammatory into Peripheral Nerves and Plexi, Percutaneous Approach (ICD-10-PCS; 2022-02-13)
PROC: 3E0T3BZ Introduction of Anesthetic Agent into Peripheral Nerves and Plexi, Percutaneous Approach (ICD-10-PCS; principal; 2022-02-13 13:30)
DX: M47.816 Spondylosis without myelopathy or radiculopathy, lumbar region (principal)
CPT/HCPCS: 76000-TC-FY

== ENCOUNTER 2022-08-07 05:27 | Day surgery (SDC) | payer OTHER ==
[2022-08-06 11:48] VITALS: BMI 34.7
[2022-08-07] MEDS ORDERED: LIDOCAINE HCL/PF 1% SDV 5ML VIAL ONE ×2 (07:12→15:37)
[2022-08-07] MEDS ORDERED: BUPIVACAINE HCL/PF 0.75% 10 ML VIAL ONE (07:12)
[2022-08-07 13:51] VITALS: RESP 20; TEMP 97.2
[2022-08-07] MEDS ORDERED: LIDOCAINE 1% P/F 10 MG/ML VIAL INF ONE (15:47)
[2022-08-07] MEDS ORDERED: BUPIVACAINE HCL/PF 0.75% 10 ML VIAL NR ONE (15:47)
[2022-08-07 16:21] VITALS: BP 132/78; PULSE 74
== END 2022-08-07 16:12 | disposition home or self-care (01) ==
LOC: JASU-SURG 05:27
PROVIDERS: ATTEND Pain Medicine Pain Medicine
PROC: BR16YZZ Fluoroscopy of Lumbar Facet Joint(s) using Other Contrast (ICD-10-PCS; 2022-08-07)
PROC: 3E0T3BZ Introduction of Anesthetic Agent into Peripheral Nerves and Plexi, Percutaneous Approach (ICD-10-PCS; principal; 2022-08-07 13:15)
DX: M47.816 Spondylosis without myelopathy or radiculopathy, lumbar region (principal)
CPT/HCPCS: 76000-TC-FY

== ENCOUNTER 2022-09-04 03:53 | Day surgery (SDC) | payer OTHER ==
[2022-09-03 07:40] VITALS: BMI 34.7
[~2022-09-04 03:53] MED LIST: BUPIVACAINE HCL/PF 0.75% 10 ML VIAL PNB ONE; DEXAMETHASONE SOD PHOSPHATE 10 MG/1 ML VIAL IVPUSH ONE; LIDOCAINE 1% P/F 10 MG/ML VIAL PNB ONE; LIDOCAINE HCL/PF 2% SDV 5ML VIAL PNB ONE
[2022-09-04] MEDS ORDERED: DEXAMETHASONE SOD PHOSPHATE 10 MG/1 ML VIAL ONE (07:23)
[2022-09-04] MEDS ORDERED: LIDOCAINE HCL/PF 1% SDV 5ML VIAL ONE (07:23)
[2022-09-04] MEDS ORDERED: BUPIVACAINE HCL/PF 0.75% 10 ML VIAL ONE (07:23)
[2022-09-04] MEDS ORDERED: LIDOCAINE HCL/PF 2% SDV 5ML VIAL ONE ×2 (07:28→07:29)
[2022-09-04 08:00] VITALS: RESP 18
[2022-09-04] MEDS ORDERED: LIDOCAINE HCL 1% PRESERVATIVE FREE - 30ML VIAL IJ ONE (09:06)
[2022-09-04] MEDS ORDERED: BUPIVACAINE HCL/PF 0.75% 10 ML VIAL PNB ONE (09:06)
[2022-09-04] MEDS ORDERED: DEXAMETHASONE SOD PHOSPHATE 10 MG/1 ML VIAL IM ONE (09:06)
[2022-09-04] MEDS ORDERED: LIDOCAINE HCL/PF 2% SDV 5ML VIAL INF ONE (09:06)
[2022-09-04 10:00] VITALS: BP 131/74; PULSE 66; TEMP 97.4
== END 2022-09-04 10:00 | disposition home or self-care (01) ==
LOC: JASU-SURG 03:53
PROVIDERS: ATTEND Pain Medicine Pain Medicine
PROC: 3E0T3TZ Introduction of Destructive Agent into Peripheral Nerves and Plexi, Percutaneous Approach (ICD-10-PCS; principal; 2022-09-04 08:45)
PROC: BR16YZZ Fluoroscopy of Lumbar Facet Joint(s) using Other Contrast (ICD-10-PCS; 2022-09-04 08:45)
DX: M47.816 Spondylosis without myelopathy or radiculopathy, lumbar region (principal); I10 Essential (primary) hypertension; E11.9 Type 2 diabetes mellitus without complications
CPT/HCPCS: 76000-TC-FY; J1100

== ENCOUNTER 2024-11-29 09:21 | Emergency (ER) | payer OTHER ==
[2024-11-29 09:30] VITALS: BP 139/75; PULSE 85; RESP 18; TEMP 98.5; BMI 33.0
[2024-11-29] MEDS ORDERED: KETOROLAC TROMETHAMINE 30 MG/1 ML VIAL ONE (09:51)
[2024-11-29] MEDS: KETOROLAC TROMETHAMINE 30 MG/1 ML VIAL IM ONE (09:56)
== END 2024-11-29 10:49 | disposition home or self-care (01) ==
LOC: JERFT 09:21
PROC: 3E0133Z Introduction of Anti-inflammatory into Subcutaneous Tissue, Percutaneous Approach (ICD-10-PCS; principal; 2024-11-29)
DX: M25.511 Pain in right shoulder (principal); M25.512 Pain in left shoulder; G89.29 Other chronic pain; R20.0 Anesthesia of skin; R20.2 Paresthesia of skin; M79.18 Myalgia, other site
CPT/HCPCS: 73030-TC-LT-FY; 73030-TC-RT-FY; 99284-25

== ENCOUNTER 2024-12-03 12:04 | Emergency (ER) | payer OTHER ==
[2024-12-03 12:15] VITALS: BP 127/64; PULSE 82; RESP 20; TEMP 98.5; BMI 33.9
[2024-12-03] MEDS ORDERED: KETOROLAC TROMETHAMINE 30 MG/1 ML VIAL ONE (13:23)
[2024-12-03] MEDS ORDERED: LIDOCAINE 5% TOPICAL PATCH ONE (13:23)
[2024-12-03] MEDS: LIDOCAINE 5% TOPICAL PATCH TP ONE (13:31)
[2024-12-03] MEDS: KETOROLAC TROMETHAMINE 30 MG/1 ML VIAL IM ONE (13:31)
== END 2024-12-03 14:29 | disposition home or self-care (01) ==
LOC: JER 12:04
PROC: 3E0233Z Introduction of Anti-inflammatory into Muscle, Percutaneous Approach (ICD-10-PCS; principal; 2024-12-03)
DX: M79.10 Myalgia, unspecified site (principal); M54.50 Low back pain, unspecified; G89.29 Other chronic pain
CPT/HCPCS: 96372; 99284-25

== ENCOUNTER 2024-12-28 03:58 | Day surgery (SDC) | payer OTHER ==
[2024-12-27 11:08] VITALS: BMI 33.9
[2024-12-28 09:27] VITALS: TEMP 98
[2024-12-28] MEDS ORDERED: ACETAMINOPHEN 500 MG TABLET (FP) PO PRN (09:27)
[2024-12-28] MEDS: LIDOCAINE HCL 1% PRESERVATIVE FREE - 30ML VIAL IJ ONE ×3 (10:41)
[2024-12-28] MEDS: IOHEXOL 180 MG/1 ML ML IJ ONE ×3 (10:42→10:45)
[2024-12-28] MEDS: DEXAMETHASONE SOD PHOSPHATE 10 MG/1 ML VIAL IVPUSH ONE ×3 (10:46)
[2024-12-28 11:03] VITALS: BP 133/69; PULSE 83; RESP 18
== END 2024-12-28 11:17 | disposition home or self-care (01) ==
LOC: JASU-SURG 03:58
PROVIDERS: ATTEND Pain Medicine Pain Medicine
PROC: 3E0R3BZ Introduction of Anesthetic Agent into Spinal Canal, Percutaneous Approach (ICD-10-PCS; 2024-12-28)
PROC: 3E0R33Z Introduction of Anti-inflammatory into Spinal Canal, Percutaneous Approach (ICD-10-PCS; principal; 2024-12-28 10:45)
DX: M54.12 Radiculopathy, cervical region (principal)
CPT/HCPCS: 76000-TC-FY; J1100

== ENCOUNTER 2025-01-10 09:40 | Emergency (ER) | payer OTHER ==
[2025-01-10 09:56] VITALS: BP 129/79; PULSE 81; RESP 18; TEMP 98.6; BMI 31.9
[2025-01-10] MEDS ORDERED: KETOROLAC TROMETHAMINE 30 MG/1 ML VIAL ONE (10:47)
[2025-01-10] MEDS: KETOROLAC TROMETHAMINE 30 MG/1 ML VIAL IM ONE (11:00)
== END 2025-01-10 11:01 | disposition home or self-care (01) ==
LOC: JER 09:40
PROC: 3E0233Z Introduction of Anti-inflammatory into Muscle, Percutaneous Approach (ICD-10-PCS; principal; 2025-01-10)
DX: M54.50 Low back pain, unspecified (principal); M54.2 Cervicalgia; G89.29 Other chronic pain
CPT/HCPCS: 99284-25

== ENCOUNTER 2025-01-19 10:07 | Emergency (ER) | payer OTHER ==
[2025-01-19 10:18] VITALS: BP 119/58; PULSE 74; RESP 18; TEMP 98.3; BMI 31.9
[2025-01-19] MEDS ORDERED: ACETAMINOPHEN 325 MG TABLET (FP) ONE (12:42)
[2025-01-19] MEDS ORDERED: KETOROLAC TROMETHAMINE 15 MG/ML VIAL ONE (12:43)
[2025-01-19] MEDS: ACETAMINOPHEN 325 MG TABLET (FP) PO ONE (12:45)
[2025-01-19] MEDS: KETOROLAC TROMETHAMINE 15 MG/ML VIAL IM ONE (12:45)
== END 2025-01-19 13:00 | disposition left against medical advice (07) ==
LOC: JER 10:07
PROC: 3E0233Z Introduction of Anti-inflammatory into Muscle, Percutaneous Approach (ICD-10-PCS; principal; 2025-01-19)
DX: M25.532 Pain in left wrist (principal); M79.642 Pain in left hand; M54.50 Low back pain, unspecified; G89.29 Other chronic pain
CPT/HCPCS: 73110-TC-LT-FY; 73130-TC-LT-FY; 73502-TC-LT-FY; 96372; 99284-25